=== PATIENT | female | born 1990 | race American Indian/Alaskan Native ===

== ENCOUNTER 2022-05-23 22:32 | Emergency (ER) | payer OTHER, SELFPAY ==
--- NOTE | ~2022-05-23 | US_ITS ---
EXAMINATION: US ABDOMEN COMPLETE CLINICAL INFORMATION: Epigastric and right upper quadrant pain. COMPARISON: None TECHNIQUE: Real-time imaging of the abdominal viscera. FINDINGS: PANCREAS: Visualized pancreas is normal. ABDOMINAL AORTA: The proximal, mid, and distal segments are normal in caliber. INFERIOR VENA CAVA: Visualized portions are normal. LIVER: There is a 1.2 cm cyst in the left lobe of liver. The liver is normal in size. The liver contour is normal. Parenchymal echogenicity is normal. No solid or concerning hepatic lesion. There is no intrahepatic biliary duct dilatation seen. GALLBLADDER: Normal. The gallbladder is physiologically distended without evidence of stones, sludge, polyps, wall thickening or pericholecystic fluid. COMMON BILE DUCT: Normal in caliber measuring 0.4 cm in diameter. RIGHT KIDNEY: Normal. No hydronephrosis. No renal calculi or focal parenchymal lesions. The kidney measures 11.9 cm in maximum dimension. LEFT KIDNEY: 1.5 cm simple cyst of the lower pole of the left kidney. No hydronephrosis. No renal calculi or solid parenchymal lesions. The kidney measures 10.9 cm in maximum dimension. SPLEEN: Normal. The spleen measures 10.8 cm in maximum dimension. FREE FLUID: None. US/US abdomen complete IMPRESSION: No findings to explain abdominal pain.
[2022-05-23 22:36] VITALS: BP 131/78; PULSE 71; RESP 20; TEMP 36.6; O2SAT 100; BMI 34.9
[2022-05-23 23:00] LABS: MANUAL DIFF FLAG NO
[2022-05-23 23:05] LABS: Basophils Percent Auto 0.3 % (0-2); Eosinophils Absolute Auto 0.2 X10*3/uL (0.0-0.4); Eosinophils Percent Auto 1.5 % (0-4); Hematocrit 37.1 % (37.0-47.0); Hemoglobin 12.5 g/dl (12.0-16.0); Imm Gran Abs Auto 0.02 X10*3/uL (0.00-0.03); Imm Gran Pct Auto 0.2 % (0.0-0.4); Lymphocytes Absolute Auto 3.6 X10*3/uL (1.2-4.9); Lymphocytes Percent Auto 35.9 % (20-40); Mean Corpuscular HGB Conc 33.7 g/dl (31.0-35.0); Mean Corpuscular Hemoglobin 28.2 pg (27.0-33.0); Mean Corpuscular Volume 83.7 fL (80.0-98.0); Mean Platelet Volume 10.8 fL (9.4-12.3); Monocytes Absolute Auto 0.7 X10*3/uL (0.1-1.2); Monocytes Percent Auto 6.6 % (2-11); Neutrophils Absolute Auto 5.5 x10*3/uL (2.0-8.3); Neutrophils Percent Auto 55.5 % (45-73); Platelet Count 308 X10*3/uL (160-400); Red Blood Count 4.43 X10*6/uL (4.20-5.50); Red Cell Distribution Width 13.5 % (11.0-16.0); White Blood Count 9.9 X10*3/uL (4.8-10.8)
[2022-05-23 23:20] LABS: Alanine Aminotransferase 17 U/L (0-31); Albumin Level 4.1 g/dL (3.5-5.0); Alkaline Phosphatase 63 U/L (39-117); Anion Gap 10 (12-20); Aspartate Amino Transferase 15 U/L (5-31); Bilirubin Total 0.3 mg/dL (0.0-1.0); Blood Urea Nitrogen 8 mg/dL (9-16); Calcium 8.4 mg/dL (8.4-10.2); Carbon Dioxide 24 mmol/L (22-29); Chloride 109 mmol/L (96-108); Creatinine Clr Calc Pharmacy 101.2; Estimated Glomerular Filt Rate > 60; Glucose Random 116 mg/dL (60-115); Potassium 3.4 mmol/L (3.3-5.1); Sodium 140 mmol/L (135-145); Total Protein 6.4 g/dL (6.5-8.0)
[2022-05-24 08:40] VITALS: BP 139/81; PULSE 60; RESP 16; TEMP 36.9; O2SAT 100
[2022-05-24] MEDS: Acetaminophen 325 MG TABLET 975 MG PO (08:49)
--- NOTE | 2022-05-24 09:33 | ED.GENADULT ---
HPI - General Adult General Chief complaint: General Medical Stated complaint: migraines/ lower back pain Time Seen by Provider: 05/24/22 08:15 Source: patient, EMS and RN notes reviewed Mode of arrival: EMS Limitations: no limitations History of Present Illness HPI narrative: This is a 32-year-old female, with past medical history of asthma, who presents with left low back pain, headache, abdominal cramping, nausea x 2 days. Patient reports that 2 days ago she felt as though she was developing a stomach bug and she had abdominal cramping and nausea. Denies diarrhea, bloody or black stool. She states that yesterday, she developed a headache in her posterior head and felt numbness and tingling in her bilateral hands which has resolved. She also reports that she has had left lower back pain that worsens with movement, denies any recent trauma, injury or heavy lifting. She denies any cough, chest pain, palpitations, shortness of breath. She states that she has taken Tylenol for her symptoms with minimial relief. She has had a +COVID sick contact, but has taken multiple COVID tests that have been negative. She denies any other complaints or concerns at this time. MD complaint: Low back pain, headache, abdominal cramping. Onset (ago): day(s) Location: head and back Radiation: non-radiation Severity: moderate Severity scale (1-10): 5 Quality: aching Pain Consistency: constant Relieving factors: immobilization and medication Exacerbating factors: movement Associated symptoms: headaches Treatments prior to arrival: other (Tylenol) Related Data Previous Rx's Medication Instructions Recorded [id number]-isxkthnrnjbgy-iemqpzor 1 cap PO Q8H PRN pain #14 caps 05/24/22 50 mg-300 mg-40 mg capsule (Fioricet) cyclobenzaprine 10 mg tablet 10 mg PO Q8H PRN Muscle spasm #14 05/24/22 tabs naproxen 500 mg tablet 500 mg PO BID PRN pain #14 tabs 05/24/22 ondansetron 4 mg disintegrating 4 mg PO Q6H #14 tabs 05/24/22 tablet Allergies Allergy/AdvReac Type Severity Reaction Status Date / Time codeine [CODEINE] Allergy Mild NAUSEATED Unverified 07/22/20 18:26 Review of Systems Review of Systems: Constitutional : No Weight loss, No Fever, No Chills, No Night Sweats, No Fatigue, No Malaise ENT/Mouth : No Hearing loss, No Ear Pain, No Nasal Congestion, No Sinus Pain, No Hoarseness, No sore throat, No Rhinorrhea, No Swallowing Difficulty Eyes: No Eye Pain, No Swelling, No Redness, No Foreign Body, No Discharge, No Vision Changes Cardiovascular : No Chest Pain, No SOB, No Dyspnea on Exertion, No Orthopnea, No Edema, No Palpitations Respiratory : No Cough, No Sputum, No Wheezing, No Smoke Exposure, No Dyspnea Gastrointestinal : No Nausea, No Vomiting, No Diarrhea, No Constipation, No abdominal Pain, No Hematochezia, No Melena Genitourinary : no irregular bleeding, No Dysuria, No Urinary Frequency, No Hematuria, No Urinary Incontinence, No Urgency, No Flank Pain, No Urinary Flow Changes, No Hesitancy Musculoskeletal : +back pain No joint pain, No Joint Swelling Skin : No Skin Lesions, No rash Neuro : +Headache. No Weakness, No Numbness, No Paresthesias, No Loss of Consciousness, No Dizziness Psych : No Anxiety/Panic, No Depression, No SI/HI/AH/VH, No Social Issues, Heme/Lymph: No Bruising, No Bleeding,No Lymphadenopathy Endocrine : No Polyuria, No Polydipsia, No Temperature Intolerance Yes all other systems are reviewed and are negative COUNT INCLUDES THE [facility] Past Medical History Attestation statement: The following information was validated with the patient. Source: old records reviewed and nursing notes reviewed Social History Social History Patient Tobacco Use Status: Never used Tobacco Smoked in Last 30 Days: No Use of substances other than those prescribed or required for medical reasons: No Advance Directives: No Patient : Yes Physical Exam ED Vital Signs: Vital Signs - 24 hr 05/23/22 22:36 05/24/22 08:40 Temperature 97.9 F 98.4 F Pulse Rate 71 60 Respiratory Rate 20 16 Blood Pressure 131/78 139/81 Pulse Oximetry 100 100 Oxygen Delivery Method Room Air Room Air BMI result Body Mass Index 34.9 Vital signs have been reviewed as normal and appeared to be correct. Blood pressure 131/78. Heart rate normal. Respiration rate normal. Temperature normal. Oxygen saturation normal. Appearance: Alert. Oriented X3. No acute distress. Head: Normal external exam. Normocephalic. Atraumatic. Eyes: PERRLA. EOMI. Conjunctiva and sclera normal. Eyelids normal. ENT: EAC normal. TM's Normal. Pharynx normal. Uvula midline. Moist mucous membranes. No lesions/ulcerations or masses noted on the tongue. Normal voice. No trismus noted. No drooling noted. No muffled voice noted. Neck: Normal inspection. Neck supple. FROM. No adenopathy. Thyroid Normal. No tracheal deviation noted. No crepitus is noted. No meningeal signs. No neck mass noted. No signs of trauma noted. CVS: Normal heart rate and rhythm. Heart sound normal. Pulses normal throughout. No murmurs/rales/gallops. Respiratory: No respiratory distress. Painless inspiration. Breath sounds normal. No wheezes/rales/rhonchi noted. Chest nontender. No crepitus is noted. No signs of trauma noted. No accessory muscle usage noted or decreased air movement noted. No signs of trauma. Abdomen: Soft and nontender. Bowel sounds normal in all 4 quadrants. No distention noted. No organomegaly noted. No visible injury noted. Back: Left lower back muscle spasms noted. Negative straight leg raise. No CVA tenderness. Full range of motion noted. Nontender. No signs of trauma. Patient neuro intact bilaterally and distally on all 4 extremities. Patient's reflexes intact bilaterally and distally on all 4 extremities. No rashes/lesion/induration/fluctuance or signs of infection noted. Skin: Skin warm and dry. Normal skin color. Normal skin turgor. No rashes/lesions/lacerations noted. Extremities: No lower extremity edema. No calf tenderness is noted. Extremities exhibit normal range of motion and nontender. Neuro: Oriented X 3. No motor deficit. No sensory deficit. Reflexes normal. Normal steady gait. No focal neuro deficits noted. CN's II-XII intact bilaterally? Vascular: + radial pulses/+ 2 distal pedal pulses/+2 dorsalis pedis b/l. Normal cap refill. No cyanosis noted to upper extremity nails and lower extremity toes nails. Course Course Course Narrative: 6625 This is a 32-year-old female, with past medical history of asthma, presents with left low back pain, headache, and abdominal cramping x 2 days. Plan: CBC and CMP were ordered while patient was in the waiting room. Labs are unremarkable. Urinalysis, urine , lipase, and abdominal ultrasound ordered. Patient medicated with Tylenol 975 mg p.o. Reevaluation(s) Reevaluation #1: - lipase within normal limits. Serum quant negative for . Patient negative for COVID. Abdominal ultrasound negative for any acute processes. Therefore at this time patient most likely viral syndrome/musculoskeletal pain. Will DC home with symptomatic treatment instructions return if any new or worsening symptoms follow up with primary care provider. Patient understands agrees with this plan. Time: 10:51 Medical Decision Making Medical Records Medical records reviewed: Yes I reviewed the patient's medical records. Lab Data Lab results reviewed: Yes I reviewed the patient's lab results. Result diagrams: 05/23/22 22:56 05/23/22 22:56 Labs: Lab Results 05/23/22 05/23/22 05/24/22 Range/Units 22:56 22:56 09:32 WBC 9.9 (4.8-10.8) X10*3/uL RBC 4.43 (4.20-5.50) X10*6/uL Hgb 12.5 (12.0-16.0) g/dl Hct 37.1 (37.0-47.0) % MCV 83.7 (80.0-98.0) fL MCH 28.2 (27.0-33.0) pg MCHC 33.7 (31.0-35.0) g/dl RDW 13.5 (11.0-16.0) % Plt Count 308 (160-400) X10*3/uL MPV 10.8 (9.4-12.3) fL Immature Gran % (Auto) 0.2 (0.0-0.4) % Neut % (Auto) 55.5 (45-73) % Lymph % (Auto) 35.9 (20-40) % Craig % (Auto) 6.6 (2-11) % Eos % (Auto) 1.5 (0-4) % Baso % (Auto) 0.3 (0-2) % Lymph # (Auto) 3.6 (1.2-4.9) X10*3/uL Craig # (Auto) 0.7 (0.1-1.2) X10*3/uL Eos # (Auto) 0.2 (0.0-0.4) X10*3/uL Baso # (Auto) 0.0 (0.0-0.2) X10*3/uL Abs Immat Gran (auto) 0.02 (0.00-0.03) X10*3/uL Absolute Neuts (auto) 5.5 (2.0-8.3) x10*3/uL Absolute Nucleated RBC 0.000 (0.0-0.012) X10*3/uL Nucleated RBC % (auto) 0.0 (0.0-0.2) /100WBC Sodium 140 (135-145) mmol/L Potassium 3.4 (3.3-5.1) mmol/L Chloride 109 H (96-108) mmol/L Carbon Dioxide 24 (22-29) mmol/L Anion Gap 10 L (12-20) BUN 8 L (9-16) mg/dL Creatinine 0.77 (0.5-1.4) mg/dL Estim Creat Clear Calc 101.2 Estimated GFR > 60 Random Glucose 116 H (60-115) mg/dL Calcium 8.4 (8.4-10.2) mg/dL Total Bilirubin 0.3 (0.0-1.0) mg/dL AST 15 (5-31) U/L ALT 17 (0-31) U/L Alkaline Phosphatase 63 (39-117) U/L Total Protein 6.4 L (6.5-8.0) g/dL Albumin 4.1 (3.5-5.0) g/dL Lipase 37 (8-78) U/L Beta HCG, Quant < 2 mIU/mL COVID-19 (JORGE) Negative (Negative) COVID-19 Clin Com See Note Imaging Data Abdominal ultrasound: Attestation: I personally reviewed and interpreted this imaging study as follows: Radiologist's impression: FINDINGS: PANCREAS: Visualized pancreas is normal. ABDOMINAL AORTA: The proximal, mid, and distal segments are normal in caliber. INFERIOR VENA CAVA: Visualized portions are normal. LIVER: There is a 1.2 cm cyst in the left lobe of liver. The liver is normal in size. The liver contour is normal. Parenchymal echogenicity is normal. No solid or concerning hepatic lesion. There is no intrahepatic biliary duct dilatation seen. GALLBLADDER: Normal. The gallbladder is physiologically distended without evidence of stones, sludge, polyps, wall thickening or pericholecystic fluid. COMMON BILE DUCT: Normal in caliber measuring 0.4 cm in diameter. RIGHT KIDNEY: Normal. No hydronephrosis. No renal calculi or focal parenchymal lesions. The kidney measures 11.9 cm in maximum dimension. LEFT KIDNEY: 1.5 cm simple cyst of the lower pole of the left kidney. No hydronephrosis. No renal calculi or solid parenchymal lesions. The kidney measures 10.9 cm in maximum dimension. SPLEEN: Normal. The spleen measures 10.8 cm in maximum dimension. FREE FLUID: None. US/US abdomen complete IMPRESSION: No findings to explain abdominal pain. Discharge Plan Discharge Clinical Impression: Acute viral syndrome, Pain on movement of skeletal muscle, Abdominal pain of unknown cause Patient Disposition: Home, Self-Care Instructions: Viral Syndrome (ED), Musculoskeletal Pain (ED) Prescriptions: New naproxen 500 mg tablet 500 mg PO BID PRN (Reason: pain) Qty: 14 0RF cyclobenzaprine 10 mg tablet 10 mg PO Q8H PRN (Reason: Muscle spasm) Qty: 14 0RF ondansetron 4 mg tablet,disintegrating 4 mg PO Q6H Qty: 14 0RF [id number]-mxukcvuiystnh-fxdh [Fioricet] 50-300-40 mg capsule 1 cap PO Q8H PRN (Reason: pain) Qty: 14 0RF Referrals: Physician,Unknown J [Primary Care Provider] - 2 days (your pcp) Stand Alone Forms: Work/School Release
[2022-05-24 09:48] LABS: Lipase 37 U/L (8-78)
[2022-05-24 09:53] LABS: COVID-19 Test Negative (Negative); IDNOW Serial# 16C4AD1C
[2022-05-24 09:54] LABS: HCG Quantitative < 2 mIU/mL
[2022-05-24 10:59] VITALS: BP 133/90; PULSE 66; RESP 17; TEMP 36.7; O2SAT 100
[2022-05-24 11:15] LABS: Appearance Urine CLEAR; Color Urine STRAW; Glucose Urine UA NEG (NEG); Leukocyte Esterase Urine NEG (NEG); Nitrite Urine NEG (NEG); PH 7.5 (5.0-8.0); UACC Culture Trigger NO; Urine Blood 3+ (NEG); Urine Ketones NEG (NEG); Urine Protein NEG (NEG-TRACE)
[2022-05-24 11:17] LABS: UPreg QC Valid YES; Urine Pregnancy NEGATIVE (NEGATIVE)
[2022-05-24 11:28] LABS: RBC Urine 50-75 /HPF (0); Squamous Epithelial Cell Urine 2+ /LPF
[2022-05-24 11:29] LABS: WBC Urine 0-2 /HPF (0-4)
== END 2022-05-24 11:09 | disposition home or self-care (01) ==
PROVIDERS: Physician Assistant Medical; Emergency Provider Emergency Medicine
DX: B34.9 Viral infection, unspecified (principal); G43.909 Migraine, unspecified, not intractable, without status migrainosus; M54.50 Low back pain, unspecified; Z20.822 Contact with and (suspected) exposure to COVID-19; Z79.899 Other long term (current) drug therapy
CPT/HCPCS: 36415; 76700; 80053; 81001; 81025; 83690; 84702; 85025; 87635; 99284

== ENCOUNTER 2022-07-16 19:44 | Emergency (ER) | payer OTHER, SELFPAY ==
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
[2022-07-16 22:14] VITALS: BP 133/80; PULSE 80; RESP 13; TEMP 36.8; O2SAT 100; BMI 36.4
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
[2022-07-17 02:43] VITALS: RESP 16; O2SAT 100
== END 2022-07-17 02:44 | disposition home or self-care (01) ==
PROVIDERS: Emergency Provider Emergency Medicine; PCP Internal Medicine
DX: S06.0X0A Concussion without loss of consciousness, initial encounter (principal); V43.52XA Car driver injured in collision with other type car in traffic accident, initial encounter; Y93.89 Activity, other specified; Y92.414 Local residential or business street as the place of occurrence of the external cause; Y99.9 Unspecified external cause status
CPT/HCPCS: 70450; 99283; 99284

== ENCOUNTER 2023-05-28 10:19 | Emergency (ER) | payer OTHER, SELFPAY ==
--- NOTE | 2023-05-28 10:33 | ECG_ITS ---
Test Reason : cp Blood Pressure : / mmHG Vent. Rate : 076 BPM Atrial Rate : 076 BPM P-R Int : 160 ms QRS Dur : 084 ms QT Int : 412 ms P-R-T Axes : 045 065 027 degrees QTc Int : 463 ms Normal sinus rhythm Septal infarct , age undetermined Abnormal ECG No previous ECGs available Referred By: Generic ED Physician Electronically Signed By:ANNETTE LUCERO MD
[2023-05-28 10:43] VITALS: BP 134/81; PULSE 70; RESP 18; TEMP 36.9; O2SAT 99; BMI 37.2
[2023-05-28 10:49] VITALS: PULSE 73
--- NOTE | 2023-05-28 10:56 | PC.NURSE ---
pt a&ox3. skin appropriate for ethnicity. respirations even and unlabored. clear bilateral lung sounds. pt reports 8/10 middle chest pain that is causing numbness down her left arm. pt was playing flag football yesterday and passed out on the field and hit head. pt thought it was asthma and took inhaler 5x. pt reports nausea and vomiting. vss. normal sinus on tele. pt went to [facility] and left without results.
--- NOTE | 2023-05-28 11:18 | ED_ITS ---
HPI - Chest Pain General Chief Complaint: Chest Pain Stated Complaint: Chest pain/Dizziness/Extremity numbness Time Seen by Provider: 05/28/23 10:39 Source: patient Limitations: no limitations History of Present Illness HPI narrative: 33-year-old female with no major medical problems presents with syncope. Patient syncopized once yesterday. She was out on a football field, felt hot patient got dizzy with a sensation of movement and then had a brief syncopal episode. She is not entirely clear how long she was out for. There is no noted tonic clonic movement, postictal confusion, tongue biting loss of bowel or bladder control. She has had intermittent chest discomfort ever since which she describes as pressure. It is nonexertional. Does not radiate. Not associated with nausea vomiting or diarrhea. There is no shortness of breath patient continues to feel dizzy and lightheaded. Patient describes her symptoms as severe. There is no clear relieving or exacerbating features. She has never had this before. She denies a personal history of heart disease or family history of sudden cardiac . Related Data Previous Rx's Medication Instructions Recorded dzodnglnvz-gcdybmpnqkilu-ourwviit 1 cap PO Q8H PRN pain #14 caps 05/24/22 50 mg-300 mg-40 mg capsule (Fioricet) cyclobenzaprine 10 mg tablet 10 mg PO Q8H PRN Muscle spasm #14 05/24/22 tabs naproxen 500 mg tablet 500 mg PO BID PRN pain #14 tabs 05/24/22 ondansetron 4 mg disintegrating 4 mg PO Q6H #14 tabs 05/24/22 tablet meclizine 25 mg tablet 25 mg PO BID PRN dizziness #10 tabs 05/28/23 ondansetron 4 mg disintegrating 4 mg PO Q8H PRN nausea and 05/28/23 tablet vomiting #10 tabs Allergies Allergy/AdvReac Type Severity Reaction Status Date / Time codeine [CODEINE] Allergy Mild NAUSEATED Verified 05/28/23 10:49 latex Allergy Itching Verified 05/28/23 10:49 Review of Systems Review of Systems: CONSTITUTIONAL: Denies weight loss, fever and chills. HEENT: Denies changes in vision and hearing. RESPIRATORY: Denies SOB and cough. CV: Denies palpitations + CP. GI: Denies abdominal pain, nausea, vomiting and diarrhea. : Denies dysuria and urinary frequency. MSK: Denies myalgia and joint pain. SKIN: Denies rash and pruritus. NEUROLOGICAL: Denies headache and syncope. Positive for dizziness PSYCHIATRIC: Denies recent changes in mood. Denies anxiety and depression. All other ROS are negative unless in HPI FOR[facility]LY [facility], [facility] Social History Social History Alcohol intake: current Alcohol intake frequency: a few times a month Patient Tobacco Use Status: Never used Tobacco Smoked in Last 30 Days: No Use of substances other than those prescribed or required for medical reasons: No Advance Directives: No Advance Directives Information Provided: Yes Physical Exam Vital Signs: Vital Signs: Last Vital Signs Temp 98.5 F 05/28/23 10:43 Pulse 68 05/28/23 12:47 Resp 18 05/28/23 12:45 BP 129/79 05/28/23 12:47 Pulse Ox 98 05/28/23 12:45 O2 Del Method Room Air 05/28/23 12:45 BMI result Body Mass Index 37.2 GEN: Well developed, no acute distress, alert, oriented HEENT: Normocephalic, atraumatic, normal external ears, nose appears normal, no oropharyngeal edema or exudates Eyes: Normal to appearance Neck: Supple, no lymphadenopathy Respiratory: Talks in complete sentences, no respiratory distress, clear to auscultation bilaterally Cardiovascular: Regular rate and rhythm, no murmurs rubs or gallops Abdomen: Soft, nontender, nondistended, no guarding, no rebound Back: No CVA tenderness Extremities: No clubbing cyanosis or edema Neurologic: No focal neurologic deficits, cranial nerves 2-12 intact, strength is 5/5 bilaterally Skin: No rash Course Course Course Narrative: 33-year-old female presents with syncope, lightheadedness, dizziness. Examination was benign. I found her not to be orthostatic. She received IV fluids, dizziness medications, additional therapy. She is currently feeling almost asymptomatic. She is feeling much better would like to be discharged at this time. I reviewed her lab work, there is no other significant identifying f eatures that could be contributing to her symptoms at this time. I suspect this is likely due to dehydration after being outside in the hot sun playing athletic activities. Reason spent an extensive amount of time discussing discharge instructions, discussing results etc.. All questions were addressed and answered. I did provide patient with a work note as well. Reevaluation(s) Reevaluation #1: Patient's initial set cardiac enzymes negative. Will order a 2nd set. Time: 11:23 Medications Administered Discontinued Medications Generic Name Dose Route Start Last Admin Trade Name Cheoq PRN Reason Stop Dose Admin Sodium Chloride 1,000 mls @ 999 mls/hr 05/28/23 11:30 05/28/23 11:45 Ns IV 05/28/23 12:30 999 mls/hr .Q1H1M KVNG Administration Meclizine HCl 25 mg 05/28/23 11:16 05/28/23 11:45 Meclizine Hcl 25 Mg Tablet PO 05/28/23 11:17 25 mg ONCE ONE Administration Medical Decision Making Medical Decision Making [facility] [place] Narrative: 33-year-old female presents with syncope/continued dizziness. Examination is benign and nonfocal. Suspect some component of dehydration. EKG shows no evidence of cardiac dysrhythmia. There is no acute ischemic changes. She is complaining of some chest related symptoms as well. Will order stat cardiac enzymes, routine laboratory analysis to rule out acute electrolyte abnormality, ACS, renal dysfunction, anemia which could also be a possible diagnosis although I suspect patient may is very likely to be discharged home, if there are any significant acute cardiac events while she is in the emergency department, I will not hesitate to admit the patient. Differential Diagnosis Differential Diagnoses: The differential diagnosis associated with the presentation includes (See above) Admission/Observation Consideration of admission/observation: Escalation of care including admission/observation considered Lab Data [facility] [place] Lab Attestation statement: I reviewed the patient's lab results. 05/28/23 11:40 05/28/23 11:40 Labs: Lab Results 05/28/23 05/28/23 05/28/23 Range/Units 11:40 11:40 11:40 WBC 8.1 (4.8-10.8) X10*3/uL RBC 4.34 (4.20-5.50) X10*6/uL Hgb 12.2 (12.0-16.0) g/dl Hct 36.4 L (37.0-47.0) % MCV 83.9 (80.0-98.0) fL MCH 28.1 (27.0-33.0) pg MCHC 33.5 (31.0-35.0) g/dl RDW 13.3 (11.0-16.0) % Plt Count 301 (160-400) X10*3/uL MPV 10.7 (9.4-12.3) fL Immature Gran % (Auto) 0.2 (0.0-0.4) % Neut % (Auto) 63.5 (45-73) % Lymph % (Auto) 26.9 (20-40) % [place] % (Auto) 6.8 (2-11) % Eos % (Auto) 2.0 (0-4) % Baso % (Auto) 0.6 (0-2) % Lymph # (Auto) 2.2 (1.2-4.9) X10*3/uL [place] # (Auto) 0.6 (0.1-1.2) X10*3/uL Eos # (Auto) 0.2 (0.0-0.4) X10*3/uL Baso # (Auto) 0.1 (0.0-0.2) X10*3/uL Abs Immat Gran (auto) 0.02 (0.00-0.03) X10*3/uL Absolute Neuts (auto) 5.2 (2.0-8.3) x10*3/uL Absolute Nucleated RBC 0.000 (0.0-0.012) X10*3/uL Nucleated RBC % (auto) 0.0 (0.0-0.2) /100WBC Sodium 142 (135-145) mmol/L Potassium 3.3 (3.3-5.1) mmol/L Chloride 108 (96-108) mmol/L Carbon Dioxide 26 (22-29) mmol/L Anion Gap 11 L (12-20) BUN 12 (9-16) mg/dL Creatinine 0.77 (0.5-1.4) mg/dL Estim Creat Clear Calc 103.7 Estimated GFR > 60 Random Glucose 89 (60-115) mg/dL Calcium 8.8 (8.4-10.2) mg/dL Troponin I High Sens 5.6 (<3.5-17.0) ng/L Urine Color Urine Appearance Urine pH (5.0-9.0) Ur Specific [place] (1.005-1.025) Urine Protein (Neg-Trace) mg/dL Urine Glucose (UA) (Negative) mg/dL Urine Ketones (Negative) mg/dL Urine Blood (Negative) Urine Nitrite (Negative) Ur Leukocyte Esterase (Negative) Urine RBC (0-2) /HPF Urine WBC (0-5) /HPF Ur Squamous Epith Cells (0-2) /HPF Urine Bacteria (None Seen) Hyaline Casts (0-2) /LPF 05/28/23 Range/Units 12:54 WBC (4.8-10.8) X10*3/uL RBC (4.20-5.50) X10*6/uL Hgb (12.0-16.0) g/dl Hct (37.0-47.0) % MCV (80.0-98.0) fL MCH (27.0-33.0) pg MCHC (31.0-35.0) g/dl RDW (11.0-16.0) % Plt Count (160-400) X10*3/uL MPV (9.4-12.3) fL Immature Gran % (Auto) (0.0-0.4) % Neut % (Auto) (45-73) % Lymph % (Auto) (20-40) % [place] % (Auto) (2-11) % Eos % (Auto) (0-4) % Baso % (Auto) (0-2) % Lymph # (Auto) (1.2-4.9) X10*3/uL [place] # (Auto) (0.1-1.2) X10*3/uL Eos # (Auto) (0.0-0.4) X10*3/uL Baso # (Auto) (0.0-0.2) X10*3/uL Abs Immat Gran (auto) (0.00-0.03) X10*3/uL Absolute Neuts (auto) (2.0-8.3) x10*3/uL Absolute Nucleated RBC (0.0-0.012) X10*3/uL Nucleated RBC % (auto) (0.0-0.2) /100WBC Sodium (135-145) mmol/L Potassium (3.3-5.1) mmol/L Chloride (96-108) mmol/L Carbon Dioxide (22-29) mmol/L Anion Gap (12-20) BUN (9-16) mg/dL Creatinine (0.5-1.4) mg/dL Estim Creat Clear Calc Estimated GFR Random Glucose (60-115) mg/dL Calcium (8.4-10.2) mg/dL Troponin I High Sens (<3.5-17.0) ng/L Urine Color Yellow Urine Appearance Clear Urine pH 6.5 (5.0-9.0) Ur Specific [place] 1.010 (1.005-1.025) Urine Protein Negative (Neg-Trace) mg/dL Urine Glucose (UA) Negative (Negative) mg/dL Urine Ketones Negative (Negative) mg/dL Urine Blood Negative (Negative) Urine Nitrite Negative (Negative) Ur Leukocyte Esterase Trace H (Negative) Urine RBC 0-2 (0-2) /HPF Urine WBC 0-5 (0-5) /HPF Ur Squamous Epith Cells 3-5 (0-2) /HPF Urine Bacteria None Seen (None Seen) Hyaline Casts 0-2 (0-2) /LPF Independent Interpretation I performed an independent interpretation of an: EKG (Normal sinus rhythm heart rate 76, no acute ST elevations depressions, normal EKG normal intervals) Tests considered The following testing was considered but not selected: CTA chest, PERC score 0 not indicated at this time. Prescription Management I considered prescription management with: Pain Medication Discharge Plan Discharge Clinical Impression: Syncope, Pre-syncope, Vertigo Patient Disposition: Home, Self-Care Instructions: Vertigo (ED), Syncope (DC), Dizziness (ED) Prescriptions: New meclizine 25 mg tablet 25 mg PO BID PRN (Reason: dizziness) Qty: 10 0RF ondansetron 4 mg tablet,disintegrating 4 mg PO Q8H PRN (Reason: nausea and vomiting) Qty: 10 0RF No Action naproxen 500 mg tablet 500 mg PO BID PRN (Reason: pain) Qty: 14 0RF cyclobenzaprine 10 mg tablet 10 mg PO Q8H PRN (Reason: Muscle spasm) Qty: 14 0RF ondansetron 4 mg tablet,disintegrating 4 mg PO Q6H Qty: 14 0RF gmujqcbtwz-apxiyqgsvqqlv-znbo [Fioricet] 50-300-40 mg capsule 1 cap PO Q8H PRN (Reason: pain) Qty: 14 0RF Referrals: Ramona Sullivan MD [Primary Care Provider] - Stand Alone Forms: Work/School Release
[2023-05-28] MEDS: Meclizine HCl 25 MG TABLET PO (11:45)
[2023-05-28] MEDS: 0.9 % Sodium Chloride 1,000 ML 999 ML IV (11:45)
[2023-05-28 11:49] LABS: MANUAL DIFF FLAG NO
[2023-05-28 11:50] LABS: Basophils Absolute Auto 0.1 X10*3/uL (0.0-0.2); Basophils Percent Auto 0.6 % (0-2); Eosinophils Absolute Auto 0.2 X10*3/uL (0.0-0.4); Hematocrit 36.4 % (37.0-47.0); Hemoglobin 12.2 g/dl (12.0-16.0); Imm Gran Abs Auto 0.02 X10*3/uL (0.00-0.03); Imm Gran Pct Auto 0.2 % (0.0-0.4); Lymphocytes Absolute Auto 2.2 X10*3/uL (1.2-4.9); Lymphocytes Percent Auto 26.9 % (20-40); Mean Corpuscular HGB Conc 33.5 g/dl (31.0-35.0); Mean Corpuscular Hemoglobin 28.1 pg (27.0-33.0); Mean Corpuscular Volume 83.9 fL (80.0-98.0); Mean Platelet Volume 10.7 fL (9.4-12.3); Monocytes Absolute Auto 0.6 X10*3/uL (0.1-1.2); Monocytes Percent Auto 6.8 % (2-11); Neutrophils Absolute Auto 5.2 x10*3/uL (2.0-8.3); Neutrophils Percent Auto 63.5 % (45-73); Platelet Count 301 X10*3/uL (160-400); Red Blood Count 4.34 X10*6/uL (4.20-5.50); Red Cell Distribution Width 13.3 % (11.0-16.0); White Blood Count 8.1 X10*3/uL (4.8-10.8)
[2023-05-28 12:01] LABS: Anion Gap 11 (12-20); Blood Urea Nitrogen 12 mg/dL (9-16); Calcium 8.8 mg/dL (8.4-10.2); Carbon Dioxide 26 mmol/L (22-29); Chloride 108 mmol/L (96-108); Creatinine Clr Calc Pharmacy 103.7; Estimated Glomerular Filt Rate > 60; Glucose Random 89 mg/dL (60-115); Potassium 3.3 mmol/L (3.3-5.1); Sodium 142 mmol/L (135-145)
[2023-05-28 12:09] LABS: Troponin-I High Sensitivity 5.6 ng/L (<3.5-17.0)
[2023-05-28 12:45] VITALS: BP 131/75; PULSE 70; RESP 18; O2SAT 98
[2023-05-28 12:46] VITALS: BP 131/75; PULSE 69
[2023-05-28 12:47] VITALS: BP 129/78; BP 129/79; PULSE 68; PULSE 71
[2023-05-28 13:07] LABS: Appearance Urine Clear; Color Urine Yellow; Glucose Urine UA Negative (Negative); Leukocyte Esterase Urine Trace (Negative); Nitrite Urine Negative (Negative); PH 6.5 (5.0-9.0); UMIC TRIGGER UACC YES; Urine Blood Negative (Negative); Urine Ketones Negative (Negative); Urine Protein Negative (Neg-Trace)
[2023-05-28 14:00] LABS: Bacteria Urine None Seen (None Seen); Hyaline Casts Urine 0-2 /LPF (0-2); RBC Urine 0-2 /HPF (0-2); WBC Urine 0-5 /HPF (0-5)
== END 2023-05-28 14:23 | disposition home or self-care (01) ==
PROVIDERS: Emergency Provider Emergency Medicine; PCP Internal Medicine
DX: R55 Syncope and collapse (principal); R42 Dizziness and giddiness
CPT/HCPCS: 36415; 80048; 81001; 81003; 84484; 85025; 93005; 99283; 99285

== ENCOUNTER → 2023-05-28 10:33 | Outpatient (BNV) | payer OTHER, SELFPAY | PROVIDERS: Emergency Provider Emergency Medicine; PCP Internal Medicine; Visit Provider Internal Medicine Cardiovascular Disease | DX: R07.9 Chest pain, unspecified (principal) | CPT/HCPCS: 93010 ==

== ENCOUNTER 2024-10-24 22:43 | Emergency (ER) | payer OTHER, SELFPAY ==
--- NOTE | 2024-10-24 | ECG_ITS ---
Test Reason : chest pain Blood Pressure : / mmHG Vent. Rate : 072 BPM Atrial Rate : 072 BPM P-R Int : 174 ms QRS Dur : 092 ms QT Int : 386 ms P-R-T Axes : 046 054 014 degrees QTc Int : 422 ms Normal sinus rhythm Incomplete right bundle branch block Septal infarct (cited on or before 28-MAY-2023) Abnormal ECG When compared with ECG of 28-MAY-2023 10:39, No significant change was found Referred By: Generic ED Physician Electronically Signed By:CHARITY OCHOA
--- NOTE | ~2024-10-24 | XR_ITS ---
EXAMINATION: XR CHEST CLINICAL INFORMATION: chest pain COMPARISON: None available. TECHNIQUE: Frontal view of the chest was obtained. FINDINGS: No significant abnormality is noted involving the heart, lungs, mediastinum, bony thorax or soft tissues. XR/XR chest 1V IMPRESSION: Unremarkable examination. Electronically signed by: Daron Bass MD 10/24/2024 11:17 PM [facility] [place]
[2024-10-24 22:48] VITALS: BP 156/93; BP 177/109; PULSE 77; RESP 20; TEMP 36.9; O2SAT 100; O2SAT 98; BMI 36.7
[2024-10-24 23:01] LABS: MANUAL DIFF FLAG NO
[2024-10-24 23:02] LABS: Basophils Absolute Auto 0.1 X10*3/uL (0.0-0.2); Basophils Percent Auto 0.7 % (0-2); Eosinophils Absolute Auto 0.2 X10*3/uL (0.0-0.4); Eosinophils Percent Auto 1.9 % (0-4); Hematocrit 36.7 % (37.0-47.0); Hemoglobin 12.7 g/dl (12.0-16.0); Imm Gran Abs Auto 0.03 X10*3/uL (0.00-0.03); Imm Gran Pct Auto 0.3 % (0.0-0.4); Lymphocytes Absolute Auto 2.8 X10*3/uL (1.2-4.9); Lymphocytes Percent Auto 30.8 % (20-40); Mean Corpuscular HGB Conc 34.6 g/dl (31.0-35.0); Mean Corpuscular Hemoglobin 28.2 pg (27.0-33.0); Mean Corpuscular Volume 81.6 fL (80.0-98.0); Mean Platelet Volume 9.9 fL (9.4-12.3); Monocytes Absolute Auto 0.7 X10*3/uL (0.1-1.2); Monocytes Percent Auto 7.4 % (2-11); Neutrophils Absolute Auto 5.3 x10*3/uL (2.0-8.3); Neutrophils Percent Auto 58.9 % (45-73); Platelet Count 315 X10*3/uL (160-400); Red Cell Distribution Width 12.9 % (11.0-16.0)
--- NOTE | 2024-10-24 23:12 | PC.NURSE ---
pt biba from home, a&ox4, respirations even and unlabored. pt reporting sudden onset of chest pressure, nausea and 10/10 headache. pt reports she did not take her anxiety medications today and is unsure if this is the cause. pt noted to be hypertensive in ems, pt blood pressure decreased on arrival. pt denies sob, vomiting and diarrhea. 20G placed in left ac,labs obtained and sent. normal sinus on tele 80-83bpm
[2024-10-24 23:16] LABS: Alanine Aminotransferase 21 U/L (0-31); Albumin Level 4.1 g/dL (3.5-5.0); Alkaline Phosphatase 58 U/L (39-117); Anion Gap 10 (12-20); Aspartate Amino Transferase 26 U/L (5-31); Bilirubin Total 0.4 mg/dL (0.0-1.0); Blood Urea Nitrogen 8 mg/dL (9-16); Carbon Dioxide 26 mmol/L (22-29); Chloride 108 mmol/L (96-108); Creatinine Clr Calc Pharmacy 98.1; Estimated Glomerular Filt Rate > 60; Glucose Random 122 mg/dL (60-115); Potassium 3.3 mmol/L (3.3-5.1); Sodium 141 mmol/L (135-145); Total Protein 6.8 g/dL (6.5-8.0)
[2024-10-24 23:32] LABS: Troponin-I High Sensitivity < 2.7 ng/L (<3.5-17.0)
[2024-10-25 00:50] VITALS: BP 147/85; PULSE 68; RESP 15; TEMP 36.8; O2SAT 99
[2024-10-25 02:49] VITALS: BP 137/83; PULSE 65; RESP 16; TEMP 36.6; O2SAT 99
--- NOTE | 2024-10-25 04:12 | ED.CHESTPAIN ---
HPI - Chest Pain General Chief Complaint: Chest Pain Stated Complaint: CP, MIGRAINE PER EMS Time Seen by Provider: 10/25/24 03:50 Source: patient Mode of arrival: ambulatory Limitations: no limitations History of Present Illness ED Provider: HPI narrative: Patient's history of migraine headaches complaining of headache nausea vomiting and then noticed chest pain no cardiac risk factors patient has vomited 1 time now feeling much better no chest pain at this time Related Data Previous Rx's ?Medication ?Instructions ?Recorded xczshxxxfk-mwqhafqjugyew-qgjmvqvo 1 cap PO Q8H PRN pain #14 caps 05/24/22 50 mg-300 mg-40 mg capsule (Fioricet) cyclobenzaprine 10 mg tablet 10 mg PO Q8H PRN Muscle spasm #14 05/24/22 tabs naproxen 500 mg tablet 500 mg PO BID PRN pain #14 tabs 05/24/22 ondansetron 4 mg disintegrating 4 mg PO Q6H #14 tabs 05/24/22 tablet meclizine 25 mg tablet 25 mg PO BID PRN dizziness #10 tabs 05/28/23 ondansetron 4 mg disintegrating 4 mg PO Q8H PRN nausea and 05/28/23 tablet vomiting #10 tabs zaeyxoaspo-vefjbhbtmtvqg-xsgqseel 1 tab PO Q6H PRN haeadace #20 tabs 10/25/24 50 mg-325 mg-40 mg tablet Allergies Allergy/AdvReac Type Severity Reaction Status Date / Time codeine [CODEINE] Allergy Mild NAUSEATED Verified 10/24/24 22:50 latex Allergy Itching Verified 10/24/24 22:50 Review of Systems Review of Systems: Yes all other systems are reviewed and are negative [facility] Social History Social History Alcohol intake: current Alcohol intake frequency: a few times a month Patient Tobacco Use Status: Never used Tobacco Smoked in Last 30 Days: No Use of substances other than those prescribed or required for medical reasons: No Advance Directives: No Advance Directives Information Provided: Yes Do you have a plan to hurt others: No Plan Patient : No Physical Exam Vital Signs: Vital Signs: Last Vital Signs Temp 97.9 F 10/25/24 04:44 Pulse 65 10/25/24 04:44 Resp 16 10/25/24 04:44 BP 137/83 10/25/24 04:44 Pulse Ox 99 10/25/24 04:44 O2 Del Method Room Air 10/25/24 04:44 O2 Flow Rate 2 10/25/24 00:50 BMI result Body Mass Index 36.7 Appearance: Alert. Oriented X3. No acute distress. Eyes: No pallor or icterus ENT: Pharynx normal. Oral Mucosa moist Neck: Normal inspection. Neck supple. CVS: Normal heart rate and rhythm. Pulses normal. Respiratory: No respiratory distress. Equal air entry bilateral, no wheezing/rales/rhonchi Abdomen: Soft and nontender. Bowel sounds are present, no mass palpable, no CVA tenderness Skin: Skin warm and dry. Normal skin color. Normal skin turgor. Extremities: No lower extremity edema. No calf tenderness Neuro: Oriented X 3. No motor deficit. No sensory deficit.No cerebellar signs , cranial nerves II-XII intact Medications Administered Discontinued Medications Generic Name Dose Route Start Last Admin Trade Name Freq PRN Reason Stop Dose Admin Acetaminophen/Butalbital/Caffeine 1 tab 10/25/24 04:29 10/25/24 04:39 Butalb/Acetamin/Caff 50/325/40 Tablet PO 10/25/24 04:30 1 tab ONCE ONE Administration Medical Decision Making Medical Decision Making [facility] Narrative: Patient likely with migraine headache with atypical chest pain from vomiting labs are stable heart score of 0 will discharge patient home on Fioricet Lab Data [facility] Lab Attestation statement: I reviewed the patient's lab results. 10/24/24 22:57 10/24/24 22:58 Labs: Lab Results 10/24/24 10/24/24 Range/Units 22:57 22:58 WBC 9.0 (4.8-10.8) X10*3/uL RBC 4.50 (4.20-5.50) X10*6/uL Hgb 12.7 (12.0-16.0) g/dl Hct 36.7 L (37.0-47.0) % MCV 81.6 (80.0-98.0) fL MCH 28.2 (27.0-33.0) pg MCHC 34.6 (31.0-35.0) g/dl RDW 12.9 (11.0-16.0) % Plt Count 315 (160-400) X10*3/uL MPV 9.9 (9.4-12.3) fL Immature Gran % (Auto) 0.3 (0.0-0.4) % Neut % (Auto) 58.9 (45-73) % Lymph % (Auto) 30.8 (20-40) % [place] % (Auto) 7.4 (2-11) % Eos % (Auto) 1.9 (0-4) % Baso % (Auto) 0.7 (0-2) % Lymph # (Auto) 2.8 (1.2-4.9) X10*3/uL [place] # (Auto) 0.7 (0.1-1.2) X10*3/uL Eos # (Auto) 0.2 (0.0-0.4) X10*3/uL Baso # (Auto) 0.1 (0.0-0.2) X10*3/uL Abs Immat Gran (auto) 0.03 (0.00-0.03) X10*3/uL Absolute Neuts (auto) 5.3 (2.0-8.3) x10*3/uL Absolute Nucleated RBC 0.000 (0.0-0.012) X10*3/uL Nucleated RBC % (auto) 0.0 (0.0-0.2) /100WBC Sodium 141 (135-145) mmol/L Potassium 3.3 (3.3-5.1) mmol/L Chloride 108 (96-108) mmol/L Carbon Dioxide 26 (22-29) mmol/L Anion Gap 10 L (12-20) BUN 8 L (9-16) mg/dL Creatinine 0.80 (0.5-1.4) mg/dL Estim Creat Clear Calc 98.1 Estimated GFR > 60 Random Glucose 122 H (60-115) mg/dL Calcium 9.0 (8.4-10.2) mg/dL Total Bilirubin 0.4 (0.0-1.0) mg/dL AST 26 (5-31) U/L ALT 21 (0-31) U/L Alkaline Phosphatase 58 (39-117) U/L Troponin I High Sens < 2.7 D (<3.5-17.0) ng/L Total Protein 6.8 (6.5-8.0) g/dL Albumin 4.1 (3.5-5.0) g/dL Independent Interpretation I performed an independent interpretation of an: EKG Interpretation: Normal sinus rhythm heart rate 72 beats per normal interval normal axis no acute ST-T changes no acute ischemia Discharge Plan Discharge Clinical Impression: Migraine Patient Disposition: Home, Self-Care Instructions: Migraine Headache (ED) Additional Instructions: Take medication for migraine headache as prescribed Follow with your PCP Prescriptions: New qjqmzymhal-zevpogzfrmowt-jmey 50-325-40 mg tablet 1 tab PO Q6H PRN (Reason: haeadace) Qty: 20 0RF No Action naproxen 500 mg tablet 500 mg PO BID PRN (Reason: pain) Qty: 14 0RF cyclobenzaprine 10 mg tablet 10 mg PO Q8H PRN (Reason: Muscle spasm) Qty: 14 0RF ondansetron 4 mg tablet,disintegrating 4 mg PO Q6H Qty: 14 0RF yizkpmyoqf-zhwqgrwahvkst-hisk [Fioricet] 50-300-40 mg capsule 1 cap PO Q8H PRN (Reason: pain) Qty: 14 0RF meclizine 25 mg tablet 25 mg PO BID PRN (Reason: dizziness) Qty: 10 0RF ondansetron 4 mg tablet,disintegrating 4 mg PO Q8H PRN (Reason: nausea and vomiting) Qty: 10 0RF Interventions: ED Discharge Assessment Last Done: 10/25/24 04:44 Discharge Date/Time: 10/25/24 04:47 Print Language: Yi
[2024-10-25] MEDS: Butalb/Acetamin/Caff 50/325/40 TABLET 1 TAB PO (04:39)
[2024-10-25 04:44] VITALS: BP 137/83; PULSE 65; RESP 16; TEMP 36.6; O2SAT 99
== END 2024-10-25 04:47 | disposition home or self-care (01) ==
PROVIDERS: Emergency Provider Internal Medicine; PCP Internal Medicine
DX: G43.909 Migraine, unspecified, not intractable, without status migrainosus (principal); R07.9 Chest pain, unspecified; R11.2 Nausea with vomiting, unspecified
CPT/HCPCS: 36415; 71045; 80053; 84484; 85025; 93005; 99283; 99285

== ENCOUNTER → 2024-10-24 22:54 | Outpatient (BNV) | payer OTHER, SELFPAY | PROVIDERS: Emergency Provider Internal Medicine; PCP Internal Medicine; Visit Provider Internal Medicine | DX: R94.31 Abnormal electrocardiogram [ECG] [EKG] (principal) | CPT/HCPCS: 93010 ==

== ENCOUNTER 2025-05-23 15:57 | Emergency (ER) | payer OTHER, SELFPAY ==
--- NOTE | 2025-05-23 | ECG_ITS ---
Test Reason : dizzy Blood Pressure : */* mmHG Vent. Rate : 70 BPM Atrial Rate : 70 BPM P-R Int : 168 ms QRS Dur : 94 ms QT Int : 410 ms P-R-T Axes : 28 43 15 degrees QTcB Int : 442 ms Normal sinus rhythm Incomplete right bundle branch block Possible Anteroseptal infarct (cited on or before 28-May-2023) Abnormal ECG When compared with ECG of 24-Oct-2024 22:54, No significant change was found Referred By: Usman South Electronically Signed By: CHARITY OCHOA
[2025-05-23 16:04] VITALS: BP 125/78; BP 130/60; PULSE 76; PULSE 78; RESP 16; TEMP 36.4; O2SAT 100; BMI 39.2
[2025-05-23 16:10] VITALS: BP 130/60; PULSE 76; RESP 16; TEMP 36.4; O2SAT 100
--- NOTE | 2025-05-23 16:14 | PC.NURSE ---
Patient presents to ED started feeling achy yesterday, woke up this morning feeling dizzy, SOB, and headache. Headache rated 6/10 non radiating patient reports blurry vision at home but not now. Patient reported pulse being 134 but returned to baseline. On admission BP 130/60. 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 Started taking hydrochlorothiazide this week for HTN. 20G placed in LAC. VSS and up to date. Provider in to see patient. Plan of care on going [ End ]
--- NOTE | 2025-05-23 16:17 | ED.GENADULT ---
HPI - General Adult General Chief complaint: Dizziness Stated complaint: dizzy,hypertension Time Seen by Provider: 05/23/25 16:17 History of Present Illness ED Provider: Akosua VILLANUEVA narrative: The patient is a 35-year-old female with a history of ADHD and anxiety and high blood pressure. She is on Focalin and clonidine and was also recently started on hydrochlorothiazide. She says that yesterday she felt mildly unwell and mildly achy. 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 ? This morning she felt worse with a headache and some chest discomfort. At 1 point she felt that she was quite dizzy and felt some shortness of breath. She checked her vital signs at home and she believes that her pulse was 134 and his blood pressure was 170/102. She called an ambulance. Paramedics apparently reported a blood pressure of 170/102 at the scene. On arrival here her blood pressure was 130/60. Currently she has a mild headache and some mild chest discomfort. No significant shortness of breath. No pain with breathing. No pain or swelling in her legs. The patient's parents are alive and in their 70s. The the patient thinks her father might have had a heart attack in his 40s. The patient's mother has no history of a heart attack or stroke although she does have history of liver cancer. The patient has an older brother who was healthy. She is a nonsmoker. No definite fever, sweats, chills. Related Data Previous Rx's ?Medication ?Instructions ?Recorded qhxrrgppxc-aqjwfrfvgduih-uyvpudjd 1 cap PO Q8H PRN pain #14 caps 05/24/22 50 mg-300 mg-40 mg capsule (Fioricet) cyclobenzaprine 10 mg tablet 10 mg PO Q8H PRN Muscle spasm #14 05/24/22 tabs naproxen 500 mg tablet 500 mg PO BID PRN pain #14 tabs 05/24/22 ondansetron 4 mg disintegrating 4 mg PO Q6H #14 tabs 05/24/22 tablet meclizine 25 mg tablet 25 mg PO BID PRN dizziness #10 tabs 05/28/23 ondansetron 4 mg disintegrating 4 mg PO Q8H PRN nausea and 05/28/23 tablet vomiting #10 tabs ghshkqojrn-joknyanywbijs-hfrdkopq 1 tab PO Q6H PRN haeadace #20 tabs 10/25/24 50 mg-325 mg-40 mg tablet Allergies Allergy/AdvReac Type Severity Reaction Status Date / Time codeine (CODEINE) Allergy Mild NAUSEATED Verified 05/23/25 16:06 latex Allergy Itching Verified 05/23/25 16:06 Review of Systems Review of Systems: Yes all other systems are reviewed and are negative [facility] Social History Social History Alcohol intake: current Alcohol intake frequency: a few times a month Patient Tobacco Use Status: Never used Tobacco Smoked in Last 30 Days: No Use of substances other than those prescribed or required for medical reasons: No Advance Directives: No Advance Directives Information Provided: No Do you have a plan to hurt others: No Plan Patient : No Physical Exam ED Vital Signs: Vital Signs - 24 hr 05/23/25 16:04 05/23/25 16:10 05/23/25 18:19 Temperature 97.6 F 97.6 F 97.5 F Pulse Rate 76 76 67 Respiratory Rate 16 16 12 Blood Pressure 130/60 130/60 124/80 Pulse Oximetry 100 100 99 Oxygen Delivery Method Room Air Room Air Room Air 05/23/25 19:10 05/23/25 19:16 Temperature 97.7 F 97.7 F Pulse Rate 71 71 Respiratory Rate 16 16 Blood Pressure 131/80 131/80 Pulse Oximetry 100 100 Oxygen Delivery Method Room Air Room Air BMI result Body Mass Index 39.2 Const Other: The patient is awake, alert, pleasant, cooperative. She is cheerful and pleasant. She seems in no distress. Orientation/consciousness: patient oriented x3 [facility] Other: The face is symmetrical. ?Mucous membranes moist. Posterior pharynx is normal. Eyes Other: Pupils are round equal, conjunctivae are clear, extraocular movements intact General: appearance normal, both eyes and all related structures Neck Neck: Yes normal visual inspection and Yes no lymphadenopathy Resp Effort & Inspection: normal respiratory effort Auscultation: clear to auscultation bilaterally Cardio Rate: regular rate Rhythm: regular rhythm Heart sounds: S1 normal heart sound present and S2 normal heart sound present GI Other: Abdomen is soft and nontender Skin Other: The skin is dry and unremarkable General skin exam: no rashes or lesions noted Neuro General: patient oriented x3, gait normal, tone normal, moves all extremities, no focal motor deficits and CN's II-XI intact bilaterally Extrem Other: There is no calf swelling or tenderness. No asymmetry. No peripheral edema. Medications Administered Discontinued Medications Generic Name Dose Route Start Last Admin Trade Name Adam PRN Reason Stop Dose Admin Ketorolac Tromethamine 15 mg 05/23/25 16:46 05/23/25 17:18 Ketorolac Tromethamine 15 Mg/Ml Vial IVPUSH 05/23/25 16:47 15 mg ONCE ONE Administration Potassium Chloride 40 meq 05/23/25 17:15 05/23/25 17:22 Potassium Chloride Er 20 Meq Tab.Er.Prt PO 05/23/25 17:16 40 meq ONCE ONE Administration Medical Decision Making Medical Decision Making [facility] Narrative: The patient is a 35-year-old female who reports feeling achy yesterday and today had an episode of dizziness associated with a mild headache and some mild chest discomfort and diffuse body aches. She reports having measured a heart rate of 134 at home. She was hypertensive initially with paramedics but apparently her heart rate was normal with the paramedics. On arrival here the patient has a normal pulse and blood pressure and looks entirely well. She has an unremarkable EKG showing normal sinus rhythm at 70 beats per minute. She has a normal physical exam. She has no risk factors for thromboembolic disease. There was nothing about her presentation that makes me think that she has a dangerous headache or dangerous chest pain. Her potassium is 2.8. This is probably from the new hydrochlorothiazide she began recently for hypertension. The patient had a mild headache and some mild chest discomfort and mild body aches. She was given a dose of Toradol and IV fluids. She was observed. She had resolution of her symptoms. She remained hemodynamically stable. Labs are unremarkable aside from her potassium of 2.8. She was given 40 mEq of oral potassium. I think she may be discharged with the instructions to eat a lot of foods that are rich in potassium over the next few days, she should hold her hydrochlorothiazide, and she should contact your primary care doctor on Sunday to discuss whether she should resume hydrochlorothiazide use. She should return to the emergency room if she feels significantly worse. Lab Data 05/23/25 16:31 05/23/25 16:31 Labs: Lab Results 05/23/25 Range/Units 16:31 WBC 6.9 (4.8-10.8) X10*3/uL RBC 4.69 (4.20-5.50) X10*6/uL Hgb 13.3 (12.0-16.0) g/dl Hct 37.5 (37.0-47.0) % MCV 80.0 (80.0-98.0) fL MCH 28.4 (27.0-33.0) pg MCHC 35.5 H (31.0-35.0) g/dl RDW 13.2 (11.0-16.0) % Plt Count 313 (160-400) X10*3/uL MPV 10.2 (9.4-12.3) fL Immature Gran % (Auto) 0.3 (0.0-0.4) % Neut % (Auto) 50.5 (45-73) % Lymph % (Auto) 38.8 (20-40) % [place] % (Auto) 8.0 (2-11) % Eos % (Auto) 2.0 (0-4) % Baso % (Auto) 0.4 (0-2) % Lymph # (Auto) 2.7 (1.2-4.9) X10*3/uL [place] # (Auto) 0.6 (0.1-1.2) X10*3/uL Eos # (Auto) 0.1 (0.0-0.4) X10*3/uL Baso # (Auto) 0.0 (0.0-0.2) X10*3/uL Abs Immat Gran (auto) 0.02 (0.00-0.03) X10*3/uL Absolute Neuts (auto) 3.5 (2.0-8.3) x10*3/uL Absolute Nucleated RBC 0.000 (0.0-0.012) X10*3/uL Nucleated RBC % (auto) 0.0 (0.0-0.2) /100WBC Sodium 142 (135-145) mmol/L Potassium 2.8 L* (3.3-5.1) mmol/L Chloride 104 (96-108) mmol/L Carbon Dioxide 28 (22-29) mmol/L Anion Gap 13 (12-20) BUN 12 (9-16) mg/dL Creatinine 0.69 (0.5-1.4) mg/dL Estim Creat Clear Calc 116.8 Estimated GFR > 60 Random Glucose 103 (60-115) mg/dL Calcium 8.9 (8.4-10.2) mg/dL Magnesium 2.0 (1.6-2.6) mg/dL Total Bilirubin 0.6 (0.0-1.0) mg/dL AST 27 (5-31) U/L ALT 23 (0-31) U/L Alkaline Phosphatase 60 (39-117) U/L Troponin I High Sens < 2.7 (<3.5-17.0) ng/L Total Protein 7.1 (6.5-8.0) g/dL Albumin 4.5 (3.5-5.0) g/dL Independent Interpretation I performed an independent interpretation of an: EKG Interpretation: EKG at 16:17 shows normal sinus rhythm at 70 beats per minute. No significant change from previous. Discharge Plan Discharge Clinical Impression: Palpitations, Hypokalemia Patient Disposition: Home, Self-Care Instructions: Potassium Content of Foods List (ED) Additional Instructions: Your testing today is reassuring although your potassium was somewhat low. The low potassium is probably a result of your new medication, the hydrochlorothiazide. I would recommend holding the hydrochlorothiazide until you speak with your regular doctor. In the meantime try to eat foods with a high potassium contents such as bananas. Please contact your regular doctor's office on Sunday to discuss whether you should continue the hydrochlorothiazide. Return to the emergency room if you feel significantly worse. Prescriptions: No Action naproxen 500 mg tablet 500 mg PO BID PRN (Reason: pain) Qty: 14 0RF cyclobenzaprine 10 mg tablet 10 mg PO Q8H PRN (Reason: Muscle spasm) Qty: 14 0RF ondansetron 4 mg tablet,disintegrating 4 mg PO Q6H Qty: 14 0RF rwbrqtpcvy-ayjgroluwpshg-cjec [Fioricet] 50-300-40 mg capsule 1 cap PO Q8H PRN (Reason: pain) Qty: 14 0RF meclizine 25 mg tablet 25 mg PO BID PRN (Reason: dizziness) Qty: 10 0RF ondansetron 4 mg tablet,disintegrating 4 mg PO Q8H PRN (Reason: nausea and vomiting) Qty: 10 0RF vqnamxinfd-skrvlabutmdxf-dpeq 50-325-40 mg tablet 1 tab PO Q6H PRN (Reason: haeadace) Qty: 20 0RF Referrals: Ramona Sullivan MD [Primary Care Provider, Internal Medicine] Interventions: ED Discharge Assessment Last Done: 05/23/25 19:16 Discharge Date/Time: 05/23/25 19:17 Print Language: Peruvian
[2025-05-23 16:35] LABS: MANUAL DIFF FLAG NO
[2025-05-23 16:36] LABS: Hematocrit 37.5 % (37.0-47.0); Hemoglobin 13.3 g/dl (12.0-16.0); Imm Gran Abs Auto 0.02 X10*3/uL (0.00-0.03); Imm Gran Pct Auto 0.3 % (0.0-0.4); Lymphocytes Absolute Auto 2.7 X10*3/uL (1.2-4.9); Mean Corpuscular HGB Conc 35.5 g/dl (31.0-35.0); Mean Corpuscular Hemoglobin 28.4 pg (27.0-33.0); Mean Corpuscular Volume 80.0 fL (80.0-98.0); NRBC Abs Auto 0.000 X10*3/uL (0.0-0.012); NRBC Pct Auto 0.0 /100WBC (0.0-0.2); Platelet Count 313 X10*3/uL (160-400); Red Blood Count 4.69 X10*6/uL (4.20-5.50); White Blood Count 6.9 X10*3/uL (4.8-10.8)
--- OUTSIDE RECORDS SUMMARY | 2025-05-23 16:57 | XMS_ITS | Data Portability ---
Author Organization [facility], [address] Address [address] [place] [address] Assessment No assessment recorded. Plan of Treatment Reminders Order Date Submit Date Provider Last Modified By Organization Details Last Modified Time Details Appointments None record ed. Lab None record ed. Referral None record ed. Procedures None record ed. Surgeries None record ed. Imaging XR, finger (s), 2 or more view 023 04/30/20 [facility], [address] [place], [address], 3 16:17:21 Medication Orders None record ed. Patient TargetsNo targets recorded. Patient Instructions Encounter Date Encounter Id Patient Instructions Last Modified By Organization Details Last Modified Time 04/30/2023 [id number] finger sprain: care instructions [email or web address] Not available 04/30/2023 15:18:15 Reason for Referral None Reported. Results Created Date Observation Date Name Description Value Unit Range Abnormal Flag Note LastModifiedBy Organization Detail LastModifiedTime 04/30/20 23 04/30/2023 XR, finge r(s), 2 or more view No observ ation record ed. [email or web address] [facility] [address] [place], [address], 04/30/2023 17:20:04 Result Notes None recorded. 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 Procedures Surgical History Date Name Laterality Status Provider Name and Address Organization Details Recorded Time section completed YAZAN ALEMAN PA - [facility] 04/30/2023 13:59:26 Imaging Results None recorded. Procedure Notes None recorded. Medical Equipment None Reported. Allergies No known drug allergies Medications Name Sig Start Date Stop Date Status Note LastModified by Organization Details LastModified Time cyclobenzap rine 10 mg tablet TAKE 1 TABLET BY MOUTH EVERY 8 HOURS NEEDED FOR MUSCLE SPASM 04/30 completed Not Available Not Available Not Available neomycin-po lymyxin-hyd rocort 3.5 mg/mL-10,00 0 unit/mL-1 % ear solution INSTILL 4 DROPS TO LEFT EAR THREE TIMES DAILY FOR 7 DAYS 04/30 completed Not Available Not Available Not Available azithromyci n 250 mg tablet TAKE 2 TABLETS BY MOUTH FOR 1 DAY THEN TAKE 1 TABLET BY MOUTH DAILY FOR 4 DAYS 04/30 completed Not Available Not Available Not Available metronidazo le 0.75 % (37.5 mg/5 gram) vaginal gel INSERT ONE APPLICATO RFUL VAGINALLY AT BEDTIME EVERY DAY 04/30 completed Not Available Not Available Not Available ondansetron HCl 4 mg tablet TAKE 1 TABLET BY MOUTH EVERY 8 HOURS NEEDED FOR NAUSEA OR VOMITING 04/30 completed Not Available Not Available Not Available sumatriptan 50 mg tablet TAKE 1 TABLET BY MOUTH 1 TIME NEEDED FOR MIGRAINE HEADACHE. MAY REPEAT DOSE AFTER 2 HOURS UP TO A. MAXIMUM OF 200 MG IN 24 HOURS 04/30 completed Not Available Not Available Not Available tamsulosin 0.4 mg capsule TAKE 1 CAPSULE BY MOUTH DAILY 04/30 completed Not Available Not Available Not Available benzonatate 100 mg capsule TAKE 1 CAPSULE BY MOUTH THREE TIMES DAILY FOR 7 DAYS 04/30 completed Not Available Not Available Not Available polymyxin B sulfate 10,000 unit-trimet hoprim 1 mg/mL eye drops INSTILL 1 DROP IN BOTH EYES FOUR TIMES DAILY FOR 7 DAYS 04/30 completed Not Available Not Available Not Available montelukast 10 mg tablet TAKE 1 TABLET BY MOUTH DAILY active Not Available Not Available No t Available ibuprofen 600 mg tablet TAKE 1 TABLET BY MOUTH FOUR TIMES DAILY FOR 14 DAYS 04/30 completed Not Available Not Available Not Available albuterol sulfate HFA 90 mcg/actuati on aerosol inhaler INHALE 2 PUFFS INTO THE LUNGS FOUR TIMES DAILY NEEDED FOR WHEEZING OR SHORTNESS OF BREATH active Not Available Not Available No t Available ondansetron 4 mg disintegrat ing tablet DISSOLVE 1 TABLET ON THE TONGUE EVERY 6 HOURS NEEDED FOR NAUSEA OR VOMITING 04/30 completed Not Available Not Available Not Available oxycodone 5 mg tablet TAKE 1 TABLET BY MOUTH EVERY 6 HOURS NEEDED FOR PAIN 04/30 completed Not Available Not Available Not Available escitalopra m 5 mg tablet TAKE 1 TABLET BY MOUTH DAILY active Not Available Not Available No t Available nitrofurant oin monohydrate /macrocryst als 100 mg capsule TAKE 1 CAPSULE BY MOUTH EVERY 12 HOURS FOR 7 DAYS 04/30 completed Not Available Not Available Not Available butalbital- acetaminoph en-caffeine 50 mg-300 mg-40 mg capsule TAKE 1 CAPSULE BY MOUTH EVERY 8 HOURS NEEDED FOR PAIN 04/30 completed Not Available Not Available Not Available Kat 30 mg tablet TAKE 1 TABLET BY MOUTH EVERY DAY 04/30 completed Not Available Not Available Not Available BinaxNOW COVID-19 Ag Self Test kit TEST DIRECTED TODAY 04/30 completed Not Available Not Available Not Available Vitals Date Recorded Body height Body mass index (BMI) Body weight Body temperature Respiratory rate Heart rate Oxygen saturation Oxygen saturation in Arterial blood by Pulse oximetry Systolic And Diastolic Provider Name and Address Organization Details Last Updated DateTime 3 154.94 cm 36.8 kg/m2 59946.5 1 g 98.5 [degF] 18 /min 70 /min 98 % 98 % 134/87 mm[Hg] YAZAN Dinh [facility] 3 14:01:00 Social History Question Answer Notes LastModified by Organizat ion Details LastModified Time Tobacco Smoking Status Never Smoker [facility] Sultana [facility] 04/30/2023 13:59:00 What Is Your Water Source? City Information not available 04/30/2023 What Is Your Heat Source? Other Information not available 04/30/2023 Have You Had Direct Contact, Or Contact During Intimacy, With Monkeypox Rash, Scabs, Or Body Fluids From A Person With Monkeypox? No Information not available 04/30/2023 Have You Recently Traveled Abroad? No Information not available 04/30/2023 Sex: Unknown Functional Status Question Answer Note LastModified by Organizat ion Details LastModified Time Do you use any illicit or recreational drugs? No Information not available 04/30/2023 Do you or have you ever used any other forms of tobacco or nicotine? No Information not available 04/30/2023 What is your level of alcohol consumption? Occasional Information not available 04/30/2023 Mental Status None recorded. Family History Relationship Description Onset Age of this Age Resolved Age Notes LastModified by Organization Details LastModified Time Father No current problems or disability Not available 13:58:52 Mother No current problems or disability Not available 13:58:52 Medical History No medical history recorded. Gynecological History Statement/Question Response Date of LMP 04/23/2023 Is there any chance of ? No Obstetrics History GPAL:G 0 P 0 0 0 0 Past Encounters Encounter ID Performer Location Encounter Start Date Encounter Closed Date Diagnosis/Indication Diagnosis SNOMED-CT Code Diagnosis ICD10 Code Diagnosis Note [id number] [address] [address] [place] [address] 07/28/2020 18:30:55 07/28/2020 19:22:26 [id number] [address] [place] [address] 05/15/2017 16:20:36 05/15/2017 17:08:16 [id number] [address] [address] [place] [address] 12/30/2016 18:55:09 12/30/2016 19:09:41 [id number] [address] [place] [address] 02/25/2018 10:19:50 02/25/2018 11:37:12 [id number] [address] [place] [address] 07/17/2018 17:34:31 07/17/2018 18:10:17 [id number] [address] [place] [address] 11/12/2020 16:50:39 11/12/2020 18:52:58 [id number] [address] [place] [address] 01/31/2020 08:39:29 01/31/2020 10:34:05 [id number] [address] [place] [address] 11/29/2018 14:01:39 11/29/2018 14:43:55 [id number] [address] [place] [address] 07/20/2020 18:46:26 07/20/2020 19:19:56 [id number] [address] [place] [address] 10/12/2020 09:19:04 10/12/2020 13:19:15 [id number] [address] [place] [address] 06/25/2019 11:42:07 06/25/2019 12:09:12 [id number] [address] [place] [address] 02/18/2021 18:20:20 02/18/2021 19:51:04 [id number] [address] [place] [address] 09/04/2019 19:46:03 09/04/2019 20:01:53 [id number] [address] [place] [address] 08/14/2017 19:09:17 08/14/2017 20:07:02 [id number] [address] [place] [address] 07/20/2018 15:24:31 07/20/2018 15:58:41 [id number] [address] [place] [address] 11/25/2016 10:43:56 11/25/2016 12:03:57 [id number] [address] [place] [address] 05/18/2017 10:26:35 05/18/2017 11:02:10 [id number] [address] [place] [address] 10/26/2020 08:55:26 10/26/2020 12:27:25 [id number] Betty Snider MD [address] [place] [address] 04/30/2023 13:42:49 04/30/2023 15:26:27 Pain in finger of left hand 4888070337 75931 M79.645 Sprain of ligament of finger of left hand 5720445313 [id number] S63.617A No Fracture noted on xrayYour x-ray will be reviewed by a radiologis t. You will be notified of any discrepanc ies between findings discussed at your visit today and the radiology interpreta tion. Health Concerns Section Related Observation LastModified by Organization Detai ls LastModified Time None Recorded Concern Status LastModified by Organization Details LastModified Time None Recorded Advance Directives Directive None Recorded Payers Insurance Date Sequence Insurance Name Policy Number Policy Gonzalez Covered Member ID Gonzalez Member ID Guarantor Name 04/30/2023 1 [facility] [id number] Heather N Vera [id number] Heather N Vera OBGyn Episode No OBEpisode recorded.
--- OUTSIDE RECORDS SUMMARY | 2025-05-23 16:57 | XMS_ITS | Clinical Summary ---
Author Organization [facility] ity Address [address] [place] [address] Care Team Providers Care Recreation Adviser Name Role Phone Unavailable Primary Care Provider Unavailabl e Social History Tobacco Use Types Packs/Day Years Used Date Smoking Tobacco: Never Assessed Comments Unknown Sex and Gender Information Value Date Recorded Sex Assigned at Not on file Legal Sex Female 9:10 AM EST Gender Identity Not on file Sexual Orientation Not on file Plan of Treatment Health Maintenance Due Date Last Done Comments DTaP,Tdap,and Td Vaccines (1 - Tdap) 02/09/2007 Hepatitis B Vaccines (1 of 3 - 19+ 3-dose series) 02/09/2007 Cervical Cancer Screening: P ap Smear 02/09/2009 COVID-19 Vaccine ( - 2023-2 5 season) 2024 Influenza Vaccine (#1) 2025 HIB Vaccines Aged Out No longer eligi ble based on patient's age to complete this topic HPV Vaccines Aged Out No longer eligi ble based on patient's age to complete this topic Hepatitis A Vaccines Aged Out No long er eligible based on patient's age to complete this topic IPV Vaccines Aged Out No longer eligi ble based on patient's age to complete this topic MMR Vaccines Aged Out No longer eligi ble based on patient's age to complete this topic Meningococcal ACWY Vaccine Aged Out N o longer eligible based on patient's age to complete this topic Meningococcal B Vaccine Aged Out No l onger eligible based on patient's age to complete this topic Pneumococcal Vaccine: Pediat rics (0 to 5 Years) and At-Risk Patients (6 to 49 Years) Aged Out No longer eligible b ased on patient's age to complete this topic RSV Immunization Patients Un jennifer 20 months Aged Out No longer eligible b ased on patient's age to complete this topic Varicella Vaccines Aged Out No longer eligible based on patient's age to complete this topic
[2025-05-23 17:07] LABS: Troponin-I High Sensitivity < 2.7 ng/L (<3.5-17.0)
[2025-05-23 17:13] LABS: Alanine Aminotransferase 23 U/L (0-31); Albumin Level 4.5 g/dL (3.5-5.0); Alkaline Phosphatase 60 U/L (39-117); Anion Gap 13 (12-20); Aspartate Amino Transferase 27 U/L (5-31); Blood Urea Nitrogen 12 mg/dL (9-16); Calcium 8.9 mg/dL (8.4-10.2); Carbon Dioxide 28 mmol/L (22-29); Chloride 104 mmol/L (96-108); Creatinine Clr Calc Pharmacy 116.8; Estimated Glomerular Filt Rate > 60; Magnesium 2.0 mg/dL (1.6-2.6); Potassium 2.8 mmol/L (3.3-5.1); Sodium 142 mmol/L (135-145); Total Protein 7.1 g/dL (6.5-8.0)
[2025-05-23] MEDS: Potassium Chloride ER 20 MEQ TAB.ER.PRT 40 MEQ PO (17:22)
[2025-05-23 18:19] VITALS: BP 124/80; PULSE 67; RESP 12; TEMP 36.4; O2SAT 99
[2025-05-23 19:10] VITALS: BP 131/80; PULSE 71; RESP 16; TEMP 36.5; O2SAT 100
[2025-05-23 19:16] VITALS: BP 131/80; PULSE 71; RESP 16; TEMP 36.5; O2SAT 100
== END 2025-05-23 19:17 | disposition home or self-care (01) ==
PROVIDERS: Emergency Provider Emergency Medicine; PCP Internal Medicine
DX: R00.2 Palpitations (principal); E87.6 Hypokalemia; R51.9 Headache, unspecified; Z79.899 Other long term (current) drug therapy
CPT/HCPCS: 36415; 80053; 83735; 84484; 85025; 93005; 96374; 99284; 99285; J1885

== ENCOUNTER → 2025-05-23 16:17 | Outpatient (BNV) | payer OTHER, SELFPAY | PROVIDERS: Emergency Provider Emergency Medicine; PCP Internal Medicine; Visit Provider Internal Medicine | DX: I45.10 Unspecified right bundle-branch block (principal) | CPT/HCPCS: 93010 ==